=== PATIENT | male | born 1985 | race Caucasian/White ===

== ENCOUNTER 2016-11-27 13:50 | Emergency (ER) | payer MEDICAID, MEDICARE ==
[2016-11-27] MEDS ORDERED: CETIRIZINE 10 MG TABLET ONE (15:04)
[2016-11-27] MEDS ORDERED: predniSONE 20 MG TABLET ONE (15:04)
[2016-11-27] MEDS: predniSONE 20 MG TABLET PO STA (15:06)
[2016-11-27] MEDS: CETIRIZINE 10 MG TABLET PO STA (15:06)
== END 2016-11-27 15:50 | disposition home or self-care (01) ==
DX: L50.9 Urticaria, unspecified (principal); F17.200 Nicotine dependence, unspecified, uncomplicated
CPT/HCPCS: 99283; A9270; J7512

== ENCOUNTER 2016-11-29 10:06 | Emergency (ER) | payer MEDICARE ==
[2016-11-29] MEDS ORDERED: DEXAMETHASONE 10 MG/ML VIAL PO STA (11:27)
[2016-11-29] MEDS ORDERED: diphenhydrAMINE 25 MG CAPSULE PO STA (11:27)
[2016-11-29] MEDS ORDERED: FAMOTIDINE 20 MG TABLET PO STA (11:27)
[2016-11-29] MEDS ORDERED: DEXAMETHASONE 10 MG/ML VIAL ONE (11:31)
[2016-11-29] MEDS ORDERED: diphenhydrAMINE 25 MG CAPSULE PO ONE (11:31)
[2016-11-29] MEDS ORDERED: FAMOTIDINE 20 MG TABLET ONE (11:31)
[2016-11-29] MEDS ORDERED: CHERRY SYRUP 10 ML UDC PO ONE (11:32)
== END 2016-11-29 12:02 | disposition home or self-care (01) ==
DX: L50.9 Urticaria, unspecified (principal); F17.200 Nicotine dependence, unspecified, uncomplicated
CPT/HCPCS: 99283; A9270

== ENCOUNTER 2019-09-12 01:28 | Emergency (ER) | payer MEDICARE ==
[2019-09-12 01:53] LABS: BILIRUBIN,URINE NEGATIVE (NEGATIVE); GLUCOSE, URINE (UA) NEGATIVE (NEGATIVE); KETONES,URINE (UA) NEGATIVE (NEGATIVE); LEUKOCYTE ESTERASE, URINE NEGATIVE (NEGATIVE); NITRITE,URINE NEGATIVE (NEGATIVE); OCCULT BLOOD,URINE NEGATIVE (NEGATIVE); PH,URINE 6.5 PH (5.0-7.5); PROTEIN,URINE NEGATIVE (NEGATIVE); UROBILINOGEN,URINE 0.2 (NORMAL) E.U./dL (NORMAL)
[2019-09-12 01:53] LABS: BASOPHILS # (AUTO) 0.1 10^3/uL (0.0-0.1); BASOPHILS % (AUTO) 0.6 %; EOSINOPHILS # (AUTO) 0.2 10^3/uL (0.0-0.7); EOSINOPHILS % (AUTO) 1.4 %; HGB - HEMOGLOBIN 13.1 g/dL (14.0-18.0); LYMPHOCYTES # (AUTO) 1.4 10^3/uL (1.5-3.5); LYMPHOCYTES % (AUTO) 12.7 %; MEAN CORPUSCULAR HEMOGLOBIN 29.5 pg (27.0-31.0); MEAN CORPUSCULAR HGB CONC 32.2 g/dL (32.0-36.0); MEAN CORPUSCULAR VOLUME 91.7 fL (80.0-94.0); MEAN PLATELET VOLUME 8.8 fL (7.4-11.4); MONOCYTES % (AUTO) 9.1 %; NEUTROPHILS # (AUTO) 8.2 10^3/uL (1.5-6.6); NEUTROPHILS % (AUTO) 75.6 %; PLT - PLATELET COUNT 377 10^3/uL (130-450); RED BLOOD COUNT 4.44 10^6/uL (4.70-6.10); RED CELL DISTRIBUTION WIDTH 12.9 % (12.0-15.0); WHITE BLOOD COUNT 10.8 x10^3/uL (4.8-10.8)
[2019-09-12 01:55] LABS: CLARITY,URINE CLEAR (CLEAR)
[2019-09-12 02:12] LABS: ALBUMIN 4.2 g/dL (3.2-5.5); ALBUMIN/GLOBULIN RATIO 1.2 (1.0-2.2); BILIRUBIN,TOTAL 0.3 mg/dL (0.2-1.0); CALCIUM 9.1 mg/dL (8.5-10.3); TOTAL PROTEIN 7.8 g/dL (6.7-8.2)
--- NOTE | 2019-09-12 02:15 | ED Physician Documentation ---
PD HPI ABD PAIN - Stated complaint Stated Complaint: ABD PX - Chief complaint Chief Complaint: Abd Pain - History obtained from History obtained from: Patient - History of Present Illness Timing - onset: How many days ago (3) Timing - duration: Days Timing - details: Gradual onset, Waxing and waning Pain level now: 4 Quality: Pain Location: RLQ Improved by: Laying still, Position Worsened by: Position, Palpation Associated symptoms: Nausea, Diarrhea. No: Fever, Vomiting, Constipation Similar symptoms before: Has not had sx before Review of Systems Constitutional: denies: Fever, Chills, Sweats Cardiac: reports: Reviewed and negative Respiratory: reports: Reviewed and negative GI: reports: Abdominal Pain, Nausea, Diarrhea. denies: Vomiting : denies: Dysuria, Frequency Skin: denies: Rash PD PAST MEDICAL HISTORY - Past Medical History Past Medical History: Yes Cardiovascular: None Respiratory: None Endocrine/Autoimmune: None Psych: Depression, Anxiety - Past Surgical History Past Surgical History: Yes Derm: Other - Present Medications Home Medications: Ambulatory Orders Medication Instructions Recorded Confirmed Ciprofloxacin HCl [Cipro] 500 mg PO BID #14 tablet 09/12/19 Ketamine HCl in Sterile Water 1 ml PO DAILY PRN 09/12/19 09/12/19 [Ketamine 30 mg/3 ml-NaCl Syrng] Metronidazole [Flagyl] 500 mg PO BID #14 tablet 09/12/19 Propranolol [Inderal] 10 mg PO TID 09/12/19 09/12/19 clonazePAM [Clonazepam] 1 mg PO TID 09/12/19 09/12/19 - Allergies Allergies/Adverse Reactions: Allergies Allergy/AdvReac Type Severity Reaction Status Date / Time No Known Drug Allergies Allergy Verified 09/12/19 01:34 - Social History Does the pt smoke?: Yes Smoking Status: Current every day smoker Does the pt drink ETOH?: Yes Does the pt have substance abuse?: No - Immunizations Immunizations are current?: Yes - POLST Patient has POLST: No PD ED PE NORMAL - Vitals Vital signs reviewed: Yes - General General: Alert and oriented X 3, No acute distress, Well developed/nourished - HEENT HEENT: Moist mucous membranes - Neck Neck: Supple, no meningeal sign - Cardiac Cardiac: RRR, No murmur, No gallop, No rub - Respiratory Respiratory: No respiratory distress, Clear bilaterally - Abdomen Abdomen: Soft, Non distended, Other (TTP RLQ, RUQ, epigastrium) - Back Back: No CVA TTP - Derm Derm: Normal color, Warm and dry, No rash Results - Vitals Vitals: Oxygen O2 Source Room air - Labs Labs: Laboratory Tests 09/12/19 09/12/19 09/12/19 01:45 01:45 01:47 WBC 10.8 RBC 4.44 L Hgb 13.1 L Hct 40.7 L MCV 91.7 MCH 29.5 MCHC 32.2 RDW 12.9 Plt Count 377 MPV 8.8 Neut # (Auto) 8.2 H Lymph # (Auto) 1.4 L [place] # (Auto) 1.0 Eos # (Auto) 0.2 Baso # (Auto) 0.1 Absolute Nucleated RBC 0.00 Nucleated RBC % 0.0 Sodium 140 Potassium 3.7 Chloride 100 L Carbon Dioxide 31 Anion Gap 9.0 BUN 10 Creatinine 1.0 Estimated GFR (MDRD) 87 L Glucose 95 Calcium 9.1 Total Bilirubin 0.3 AST 19 ALT 15 Alkaline Phosphatase 52 Total Protein 7.8 Albumin 4.2 Globulin 3.6 Albumin/Globulin Ratio 1.2 Lipase 48 Urine Color YELLOW Urine Clarity CLEAR Urine pH 6.5 Ur Specific [place] <=1.005 Urine Protein NEGATIVE Urine Glucose (UA) NEGATIVE Urine Ketones NEGATIVE Urine Occult Blood NEGATIVE Urine Nitrite NEGATIVE Urine Bilirubin NEGATIVE Urine Urobilinogen 0.2 (NORMAL) Ur Leukocyte Esterase NEGATIVE Ur Microscopic Review NOT INDICATED Urine Culture Comments NOT INDICATED - Rads (name of study) CT A/P Radiology: Prelim report reviewed, See rad report PD MEDICAL DECISION MAKING - ED course Complexity details: reviewed results, re-evaluated patient, considered differential, d/w patient ED course: d/w Dr. Motta, she recommends as admit to hospitalist for IV abx. d/w patient and he strongly prefers d/c home, does not want to stay. we discussed risks/benefits and in weighing them, he feels that he can return immediately if worse in any way but wants to try outpatient first with abx. Departure - Departure Disposition: Home, Self Care Clinical Impression: Ileitis, Colitis Condition: Good Instructions: ED Gastroenteritis Bacterial Prescriptions: Ciprofloxacin HCl [Cipro] 500 mg PO BID #14 tablet Metronidazole [Flagyl] 500 mg PO BID #14 tablet Forms: Activity restrictions Discharge Date/Time: 09/12/19 05:10
[2019-09-12] MEDS ORDERED: IOVERSOL 320 100 ML VIAL IVP ONE ×2 (02:54→03:20)
--- NOTE | 2019-09-12 04:03 | CT Report ---
Reason: RLQ pain, tenderness Procedure Date: 09/12/2019 Accession Number: [id number] / [id number] Procedure: CT - Abdomen/Pelvis W CPT Code: Final Report FULL RESULT: EXAM: CT ABDOMEN AND PELVIS EXAM DATE: 09/12/2019 03:18 AM. CLINICAL HISTORY: RLQ pain, tenderness. COMPARISONS: None. TECHNIQUE: Routine helical CT imaging was performed through the abdomen and pelvis. IV contrast: OPTI 320 100ML. Enteric contrast: No. Reconstructions: Coronal and sagittal. In accordance with CT protocol optimization, one or more of the following dose reduction techniques were utilized for this exam: automated exposure control, adjustment of mA and/or KV based on patient size, or use of iterative reconstructive technique. FINDINGS: Lung Bases: Mild dependent atelectasis. Visualized lung bases otherwise unremarkable. Liver: Subtle increased enhancement at tip of right hepatic lobe. Adjacent small perihepatic/right paracolic gutter fluid. Liver otherwise unremarkable. Gallbladder/Bile Ducts: Unremarkable. Spleen: Normal. Pancreas: Normal. Adrenal Glands: Normal. Kidneys: Normal. No masses or hydronephrosis. Peritoneal Cavity/Bowel: Segment of bowel wall thickening in right lower quadrant involving distal and terminal ileum. There is mild dilation of small bowel proximal to thickened segment with air-fluid level suggesting partial obstruction related to segment of wall thickening. Entire appendix not well seen although visualized portion is normal. Mild ascending colonic wall thickening. Small free fluid along right pericolic gutter. No free air or abscess. Pelvic Organs: Normal. The bladder and visualized pelvic organs are within normal limits. Vasculature: No aneurysms or other significant abnormality. Bones: Mild curvature of spine which may be positional. No acute osseous abnormality. Other: None. IMPRESSION: 1. Segmental wall thickening of distal and terminal ileum consistent with infectious or inflammatory ileitis. Additionally, there is mild ascending colonic wall thickening consistent with component of colitis. 2. Mild dilation of bowel proximal to aforementioned distal ileal wall thickening. Findings suggest partial distal small bowel obstruction related to ileal wall thickening. 3. Small free fluid at tip of liver/right paracolic gutter. No free air or abscess. 4. Entire appendix not well seen. However, visualized portion is normal. 5. Subtle increased enhancement at tip of liver favored to represent transient hepatic attenuation difference. Subtle underlying mass considered less likely. Nonemergent ultrasound can be performed to further assess. [facility]
[2019-09-12 04:26] VITALS: BP 111/71
[2019-09-12] MEDS ORDERED: metroNIDAZOLE 250 MG TABLET PO STA (04:47)
[2019-09-12] MEDS ORDERED: CIPROFLOXACIN 250 MG TABLET PO STA (04:47)
== END 2019-09-12 05:10 | disposition home or self-care (01) ==
LOC: ED 01:28
DX: K52.9 Noninfective gastroenteritis and colitis, unspecified (principal); F17.200 Nicotine dependence, unspecified, uncomplicated
CPT/HCPCS: 36415; 74177; 80053; 81003; 83690; 85025; 99284; A9270; Q9967; 81001; 87086